=== PATIENT | male | born 1985 | race Caucasian/White ===

== ENCOUNTER 2023-11-23 15:19 | Emergency (ER) | payer OTHER, SELFPAY ==
[2023-11-23 15:21] VITALS: BP 145/93
[2023-11-23 15:49] LABS: % Basophils 0.3 % (0-2); % Eosinophils 0.1 % (0-6); % Immature Granulocytes 0.4 % (0-0.5); % Lymphocytes 7.4 % (20.5-51.1); % Monocytes 7.1 % (1.7-9.3); % Neutrophils 84.7 % (42.2-75.2); Absolute Lymphocytes 0.8 10^3/uL (1.2-3.4); Absolute Monocytes 0.7 10^3/uL (0.1-0.6); Absolute Neutrophils 8.6 10^3/uL (1.4-6.5); Hematocrit 35.9 % (39.0-52.0); Mean Corp Hgb Conc. 36.2 g/dL (33.0-37.0); Mean Corpuscular Hgb 30.8 pg (27.0-31.0); Mean Corpuscular Volume 85.1 fL (80.0-94.0); Mean Platelet Volume 9.3 fL (7.4-10.4); Nucleated Red Blood Cells % 0 % (-); Platelet Count 261 10^3/uL (130-400); Red Blood Cell Count 4.22 10^6/uL (4.70-6.10); Red Cell Dist. Width 12.3 % (11.5-14.5); Urine Albumin 1+ (Neg - Trace); Urine Bilirubin 1+ (Negative); Urine Character Clear (Clear); Urine Color Yellow; Urine Glucose Negative (Negative); Urine Ketone Negative (Negative); Urine Leukocyte Trace (Negative); Urine Nitrite Negative (Negative); Urine Occult Blood Trace (Negative); Urine Specific Gravity 1.015 (<1.030); Urine Urobilinogen 1+ (Neg - 1+); White Blood Cell Count 10.2 10^3/uL (4.8-10.8)
[2023-11-23 16:00] LABS: Urine Squamous Cell 0-2 /LPF (Few)
[2023-11-23 16:01] LABS: Urine Bacteria Few (Negative); Urine Red Blood Cell 0-2 /HPF (0-2); Urine White Cell 0-2 /HPF (0-5)
[2023-11-23 16:08] LABS: ALT (SGPT) 170 U/L (0-50); AST (SGOT) 229 U/L (17-59); Albumin 4.2 g/dl (3.5-5.0); Alkaline Phosphatase 91 U/L (38-126); Blood Urea Nitrogen 16 mg/dl (9-20); Carbon Dioxide 25 mmol/L (22-30); Chloride 100 mmol/L (98-107); Glucose 139 mg/dl (70-99); Potassium 4.2 mmol/L (3.5-5.1); Sodium 139 mmol/L (135-145); Total Bilirubin 0.7 mg/dl (0.2-1.3); Total Protein 7.2 g/dl (6.3-8.2); eGFR > 60.00
[2023-11-23 16:14] LABS: Troponin I < 0.012 ng/ml
--- NOTE | 2023-11-23 17:10 | ED.GENMED ---
History of Present Illness
General
Chief Complaint: Cold/Flu/URI Symptoms
Source: patient
Time Seen by Provider: 11/23/23 16:55
History of Present Illness
History of Present Illness:
38-year-old male presents to the emergency room from urgent care. Patient went to urgent care because he has been experiencing a productive cough, body aches for the past few days. Patient also has a history of psoriatic arthritis. He is on Toltz
for this. He was also recently started on a course of steroids because he was experiencing a flare in his ankle. While at the urgent care he was noted to have a rapid heart rate. He evidently had a chest x-ray and was told he has pneumonia. They
did an EKG and told the patient he had EKG abnormalities and that he should come to the emergency room. Patient denies any cardiac history. He denies any chest pain. He has no pain with deep inspiration.
Phy Exam
Physical Exam
Physical Exam:
General: Awake, Alert, Oriented X3. No acute distress.
Vitals: Tachycardia
Head: Atraumatic
Eyes: Pupils equal, EOMI
Throat: Airway intact, no exudates
Neck: Trachea midline
Lungs: Clear and equal b/l
Heart: Regular rate, no murmurs
Abd: Soft, Nontender, No pulsatile mass
Neuro: Nonfocal
Skin: Warm, dry, no rash
Extremities: pulses equal b/l, no edema
Course
Orders/Labs/Results
Orders:
Orders
11/23/23 15:26
Electrocardiogram (*1) Urgent
Reason for Study: Chest Pain
EKG- Treatment ONCE
11/23/23 15:39
Complete Blood Count/With Diff Urgent
Comprehensive Metabolic Panel Urgent
Monotest Urgent
Comment: ADDON
Troponin I Urgent
Urinalysis Reflex To Culture Urgent
Date Specimen was Collected: 11/23/23
Time Specimen was Collected: 15:26
Urine Microscopic Reflex Cult Urgent
11/23/23 16:28
Add On- LAB Urgent
Tests Added?: mono
11/23/23 17:09
Lactated Ringers [Lr] 1,000 ml IV BOLUS
11/23/23 17:44
D-Dimer Urgent
Lactic Acid Q4H
Comment: CANCEL 2nd LACTIC ACID IF 1st LACTIC ACID IS LESS THAN 2
11/23/23 17:50
COVID-19 Antigen Urgent
Source: Nasal Swab
Blood Culture Routine
DANIELLE Source: Blood/Venous
Specimen Description:
11/23/23 17:56
Acetaminophen [Tylenol] 650 mg PO NOW STA
11/23/23 18:06
Influenza A+B Rapid Molecular Urgent
DANIELLE Source: Nasal Swab
Specimen Description:
11/23/23 18:26
CT Chest Pe Study Urgent
Comment:
Reason For Exam: sob, elevated d dimer, tachycardic
11/23/23 20:46
LevoFLOXacin [Levaquin] 750 mg PO NOW STA
Abnormal Lab Results
11/23/23 11/23/23
15:39 17:44
RBC 4.22 L 10^6/uL
(4.70-6.10)
Hct 35.9 L %
(39.0-52.0)
Absolute Neuts (auto) 8.6 H 10^3/uL
(1.4-6.5)
Absolute Lymphs (auto) 0.8 L 10^3/uL
(1.2-3.4)
Absolute Monos (auto) 0.7 H 10^3/uL
(0.1-0.6)
Neutrophils % 84.7 H %
(42.2-75.2)
Lymphocytes % 7.4 L %
(20.5-51.1)
D-Dimer 0.81 H ug/mlFEU
(0.00-0.50)
Glucose 139 H mg/dl
(70-99)
AST 229 H U/L
(17-59)
ALT 170 H U/L
(0-50)
Ur Occult Blood Reflex Trace A
(Negative)
Urine Bilirubin 1+ A
(Negative)
Leukocyte Esterase Rfl Trace A
(Negative)
Urine Bacteria (Reflex) Few A
(Negative)
Urine Albumin (Reflex) 1+ A
(Neg - Trace)
11/23/23 15:39
11/23/23 15:39
Vital Signs
Initial and Last Documented VS:
Initial Vital Signs
Temp Pulse Resp BP Pulse Ox
99.3 F 122 16 145/93 100
11/23/23 15:21 11/23/23 15:21 11/23/23 15:21 11/23/23 15:21 11/23/23 15:21
Last Documented Vital Signs
Temp Pulse Resp BP Pulse Ox
100.5 F H 93 16 140/87 97
11/23/23 18:22 11/23/23 20:30 11/23/23 20:45 11/23/23 19:00 11/23/23 20:45
MDM/Problems Addressed
Differential Diagnosis Includes:
Pneumonia, acute bronchitis, viral URI, PE
MDM/Problems Addressed:
Presents to the emergency room from urgent care due to pneumonia type symptoms and tachycardia. Patient is not sinus tachycardia on arrival. He was found to have a low-grade fever. Heart rate improved with IV fluids and antipyretics. Patient's
chest x-ray was uploaded from urgent care. There may be some subtle changes on the lateral view but I was not overwhelmed by the findings. Therefore further investigation was undertaken. Fortunately the patient's lactic acid level is normal. He
does have an elevated D-dimer. His white count is normal. AST and ALT are mildly elevated. Urinalysis is not consistent with a urinary tract infection. [place] and COVID are negative. A CT chest was obtained given the minimal findings on chest
x-ray the elevated D-dimer. This confirms the presence of a right lower lobe pneumonia. I discussed with the patient my suggestion that he be hospitalized for IV antibiotics. The suggestion was made based upon his tachycardia on arrival, the use
of immunosuppressive medication for his psoriatic arthritis as well as prednisone. However patient is not interested in staying. He states he feels tremendously better after treatment here in the emergency room. He does not feel short of breath
at all. I will prescribe Levaquin for the pneumonia. Encouraged the patient to return if he is feeling worse in any way or not better in the next 48 hours.
*Radiology
Radiology exam reviewed: radiology read reviewed
*Pulse Oximetry
Patient hypoxic: no
*EKG
Interpreted by ED Provider?: Yes
Heart Rate: 109
Rate: tachycardiac
Rhythm: sinus tachycardia
[place]: normal axis
Interval: normal interval
QRS Pattern: normal QRS
Ischemia: non-specific ST changes
*Stores Clerk Interpretation
Rate: tachycardiac
Interpretation: abnormal
Heart Rate: 109
Rhythm: sinus tachycardia
*Critical Care Note
Total Time (30-74mins, 75-104mins- exclusive of procedures): Not Applicable
Patient Management
Social determinants of health affecting care: Strong social support
Escalation/DeEscalation of care consider admission/obs:
Suggested hospitalization patient would prefer discharge home.
ED Attending Note
-
Portions of this chart may have been created with voice recognition software.� Occasional wrong word or��sound alike� substitutions may have occurred due to the inherent limitations of voice recognition software.
Discharge Plan
Departure
Patient Disposition: Home (Routine Discharge)
Date of Disposition: 11/23/23
Time of Disposition: 20:48
Patient with high blood pressure during this ER visit?: Yes
Condition: Good
Discharge Problem:
Pneumonia
Instructions: Community-Acquired Pneumonia, Adult (DC)
Prescriptions:
New
levofloxacin 750 mg tablet
750 mg PO DAILY 5 Days Qty: 5 0RF
Referrals:
Irma Bean MD [Family Provider] -
Activity Restrictions/Additional Instructions:
Please return to the ER is you are feeling worse. Please follow up with your family doctor early next week.
Interventions
Interventions:
*Risk Screen - Suicide Last Done: 11/23/23 15:21
*General Assessment Last Done: 11/23/23 21:00
*Neglect/Abuse Screening Last Done: 11/23/23 15:21
ED- Fall Risk Assessment Last Done: 11/23/23 18:21
*ED COVID-19 Vaccine History Last Done: 11/23/23 21:00
*Nursing Disposition Last Done: 11/23/23 21:00
ED- Pulmonary Assessment Last Done: 11/23/23 18:21
Discharge Date and Time
Discharge Date/Time: 11/23/23 21:02
Print Language: [place]
[2023-11-23 17:25] LABS: Monotest Negative (Negative)
[2023-11-23] MEDS: TYLENOL 650 MG PO (18:00)
[2023-11-23] MEDS: LR 1000 IV (18:01)
[2023-11-23 18:03] LABS: D-Dimer 0.81 ug/mlFEU (0.00-0.50); Lactic Acid 0.9 mmol/L (0.7-2.0)
[2023-11-23 18:20] VITALS: BMI 24.2
[2023-11-23 18:27] VITALS: BP 157/94
[2023-11-23 18:36] LABS: COVID-19 Antigen Negative (Negative)
[2023-11-23 18:54] VITALS: BP 135/80
[2023-11-23 19:00] VITALS: BP 140/87
[2023-11-23] MEDS: LEVAQUIN 750 MG PO (20:54)
== END 2023-11-23 21:02 | disposition home or self-care (01) ==
LOC: EMR 15:19
PROVIDERS: Emergency Medicine; EMERGENCY PHYSICIAN Emergency Medicine; FAMILY PHYSICIAN Internal Medicine
DX: J18.9 Pneumonia, unspecified organism (principal); R03.0 Elevated blood-pressure reading, without diagnosis of hypertension; Z11.52 Encounter for screening for COVID-19
CPT/HCPCS: 99285; 96360; 71275; 80053; 81003; 81015; 83605; 84484; 85025; 85379; 86308; 87040; 87502; 87811; 93005; Q9967